=== PATIENT | male | born 1945 | race Caucasian/White ===

== ENCOUNTER 2017-09-29 08:34 | Day surgery (SDC) | payer MEDICARE ==
[2017-09-29] MEDS ORDERED: HEPARIN 1000 UNITS/ML 10 ML INJ (09:57)
[2017-09-29] MEDS ORDERED: VERAPAMIL 5 MG INJ (09:57)
[2017-09-29] MEDS ORDERED: IODIXANOL LOCM 100 ML BTL (09:57)
[2017-09-29] MEDS ORDERED: LIDOCAINE 1% (MDV) 20 ML INJ (09:57)
[2017-09-29] MEDS ORDERED: FENTAnyl 50 MCG/ML VIAL (09:57)
[2017-09-29] MEDS ORDERED: MIDAZOLAM 1 MG/ML 2 ML INJ (09:57)
[2017-09-29] MEDS ORDERED: NITROGLYCERIN (IC) 100 MCG/ML INJ (09:58)
[2017-09-29] MEDS ORDERED: SOD CHLORIDE 0.9% 500 ML (09:58)
[2017-09-29 10:20] LABS: ADD MAN DIFF? NO
[2017-09-29 10:24] LABS: BASOPHIL # 0.1 10^3/ul (0.0-0.1); BASOPHILS % 0.7 % (0.0-2.0); EOSINOPHILS # 0.2 10^3/ul (0.0-0.5); EOSINOPHILS % 2.7 % (0.0-7.0); HEMATOCRIT 41.4 % (42.0-52.0); HEMOGLOBIN 13.6 g/dl (14.0-18.0); LYMPHOCYTES # 2.1 10^3/ul (0.8-2.9); LYMPHOCYTES % 27.8 % (15.0-51.0); MEAN CORPUSCULAR HGB CONC 32.9 g/dl (32.0-37.0); MEAN CORPUSCULAR VOLUME 85.4 fl (82.0-101.0); MEAN PLATELET VOLUME 10.2 fl (7.4-10.4); MONOCYTE # 0.8 10^3/ul (0.3-0.9); MONOCYTES % 10.1 % (0.0-11.0); NEUTROPHIL # 4.5 10^3/ul (1.6-7.5); NEUTROPHILS % 58.6 % (39.0-77.0); PLATELET COUNT 216 10^3/UL (140-415); RED BLOOD COUNT 4.85 10^6/ul (4.70-6.10); RED CELL DISTRIBUTION WIDTH 14.8 % (11.5-14.5)
[2017-09-29 10:24] LABS: WHITE BLOOD COUNT 7.7 10^3/ul (4.8-10.8)
[2017-09-29 10:43] LABS: ALANINE AMINOTRANSFERASE 22 IU/L (13-69); ALBUMIN/GLOBULIN RATIO 1.08; ALKALINE PHOSPHATASE 75 IU/L (42-121); ANION GAP 12 (8-16); ASPARTATE AMINO TRANSFERASE 17 IU/L (15-46); BILIRUBIN,INDIRECT 0.8 mg/dl (0-1.1); BILIRUBIN,TOTAL 0.8 mg/dl (0.2-1.3); CARBON DIOXIDE 32 mmol/L (21-31); CHLORIDE 106 mmol/L (97-110); CHOL/HDL RATIO 5.1 RATIO; CHOLESTEROL 153 mg/dl (100-200); GLUCOSE 128 mg/dl (70-220); HDL CHOLESTEROL 30 mg/dl (31-75); LDL CHOLESTEROL,CALCULATED 97 mg/dl; TOTAL PROTEIN 7.7 g/dl (6.1-8.1); TRIGLYCERIDES 130 mg/dl (0-149)
[2017-09-29 10:45] LABS: BLOOD UREA NITROGEN 16 mg/dl (7-20); CALCIUM 9.3 mg/dl (8.4-10.2); CREATININE 1.14 mg/dl (0.61-1.24); POTASSIUM 3.1 mmol/L (3.5-5.1); SODIUM 147 mmol/L (135-144)
[2017-09-29 10:57] LABS: INR 0.97
[2017-09-29 10:58] LABS: PARTIAL THROMBOPLASTIN TIME 33.1 Sec (25.0-35.0)
[2017-09-29] MEDS ORDERED: POTASSIUM CHLORIDE 50 ML IVPB (11:00)
[2017-09-29] MEDS: POTASSIUM CHLORIDE (SR) 20 MEQ TAB PO (11:23)
[2017-09-29] MEDS ORDERED: POTASSIUM CHLORIDE 100 ML IVPB (12:00)
[2017-09-29] MEDS ORDERED: hydrALAzine 20 MG INJ IV (12:00)
[2017-09-29] MEDS: AMLODIPINE 5 MG TAB PO (12:57)
[2017-09-29] MEDS: LOSARTAN 50 MG TAB PO (14:30)
== END 2017-09-29 16:57 | disposition home or self-care (01) ==
LOC: SDS 08:34
DX: I25.119 Atherosclerotic heart disease of native coronary artery with unspecified angina pectoris (principal); I10 Essential (primary) hypertension; E78.5 Hyperlipidemia, unspecified; I42.9 Cardiomyopathy, unspecified
CPT/HCPCS: 80053; 80061; 85025; 85610; 85730; 93005; 93454